=== PATIENT | female | born 1945 | race Caucasian/White ===

== ENCOUNTER 2019-07-15 19:21 | Emergency (ER) | payer MEDICARE, BC ==
--- NOTE | 2019-07-15 20:17 | EDM.PDOC ---
ED HPI GENERAL MEDICAL PROBLEM - General Chief Complaint: General Stated Complaint: MEDICAL Time Seen by Provider: 07/15/19 20:09 Source of Information: Reports: Patient History Limitations: Reports: No Limitations - History of Present Illness INITIAL COMMENTS - FREE TEXT/NARRATIVE: pt was very sleepy at first and did not answer questions. She then seemed more awake. She did vomit a large emesis at home. She is having some pain in her abdoman. She has a headache on the left side of her head. She had a t least 2-3 shots of kendra with her hot tottie. Onset: Today, Other (pt was very sleepy and confused when her dayughter found her. ) Duration: Hour(s): Location: Reports: Head, Chest, Abdomen, Generalized Associated Symptoms: Reports: Cough, Loss of Appetite, Nausea/Vomiting, Weakness denies pain Pain Score (Numeric/FACES): 0 - Related Data Allergies Allergy/AdvReac Type Severity Reaction Status Date / Time nitrofurantoin Allergy Rash Verified 07/15/19 19:58 [From Macrobid] Sulfa (Sulfonamide Allergy Rash Verified 07/15/19 19:58 Antibiotics) Home Meds: Home Meds Aspirin 81 mg PO DAILY 07/15/19 [History] Omeprazole 40 mg PO DAILY 07/15/19 [History] Raloxifene HCl [Evista] 60 mg PO DAILY 07/15/19 [History] carBAMazepine [TEGretol ER] 200 mg PO DAILY 07/15/19 [History] Past Medical History HEENT History: Reports: Impaired Vision, Other (See Below) Other HEENT History: dentures Cardiovascular History: Reports: High Cholesterol Gastrointestinal History: Reports: Other (See Below) Other Gastrointestinal History: acid reflux CADDY History: Reports: Musculoskeletal History: Reports: Arthritis Neurological History: Reports: Headaches, Chronic Psychiatric History: Reports: Depression - Infectious Disease History Infectious Disease History: Reports: Chicken Pox, Measles, Mumps - Past Surgical History GI Surgical History: Reports: Colonoscopy Female Surgical History: Reports: Tubal Ligation Social & Family History - Tobacco Use Smoking Status *Q: Never Smoker - Caffeine Use Caffeine Use: Reports: Coffee - Recreational Drug Use Recreational Drug Use: No ED ROS GENERAL - Review of Systems Review Of Systems: See Below Constitutional: Reports: Malaise, Weakness, Other (pt did have a ho tottie prior to coming to the ER and being found so sleepy. ) HEENT: Reports: No Symptoms Respiratory: Reports: No Symptoms Cardiovascular: Reports: No Symptoms Endocrine: Reports: No Symptoms GI/Abdominal: Reports: No Symptoms : Reports: No Symptoms Musculoskeletal: Reports: No Symptoms Skin: Reports: No Symptoms Neurological: Reports: Confusion, Dizziness, Trouble Speaking, Weakness, Other ( pt was very sleepy. ) ED EXAM, GENERAL - Physical Exam Exam: See Below Free Text/Narrative:: pt arrived very sleepy and not responding as she normally did. She states that she did have a hot tottie prior to the onset of these symptoms. Exam Limited By: No Limitations General Appearance: Alert, Mild Distress, Other (pupils equal and reactive to lite. ) Ears: Normal TMs Nose: Normal Inspection Throat/Mouth: Normal Inspection Head: Atraumatic Neck: Normal Inspection Respiratory/Chest: No Respiratory Distress Cardiovascular: Regular Rate, Rhythm GI/Abdominal: Soft, Other (mild lower abdomanal tenderness. ) (Female) Exam: Deferred Rectal (Female) Exam: Other (no masses were noted the stool was not bloody and was soft. ) Back Exam: Normal Inspection Extremities: Normal Inspection Neurological: Alert, Oriented, Normal Cognition Psychiatric: Normal Affect Skin Exam: Dry Course - Vital Signs Last Recorded V/S: Last Vital Signs Temp 36.3 C 07/15/19 19:57 Pulse 79 07/15/19 21:53 Resp 16 07/15/19 21:53 BP 118/73 07/15/19 21:53 Pulse Ox 94 L 07/15/19 21:53 - Orders/Labs/Meds Labs: Laboratory Tests 07/15/19 07/15/19 07/15/19 Range/Units 20:04 20:12 20:12 WBC 8.3 (4.5-11.0) K/uL RBC 4.61 (3.30-5.50) M/uL Hgb 13.3 (12.0-15.0) g/dL Hct 40.1 (36.0-48.0) % MCV 87 (80-98) fL MCH 29 (27-31) pg MCHC 33 (32-36) % Plt Count 225 (150-400) K/uL Neut % (Auto) 86 H (36-66) % Lymph % (Auto) 11 L (24-44) % [place] % (Auto) 2 (2-6) % Eos % (Auto) 1 L (2-4) % Baso % (Auto) 0 (0-1) % Sodium 143 (140-148) mmol/L Potassium 3.1 L (3.6-5.2) mmol/L Chloride 107 (100-108) mmol/L Carbon Dioxide 25 (21-32) mmol/L Anion Gap 14.1 H (5.0-14.0) mmol/L BUN 9 (7-18) mg/dL Creatinine 0.6 (0.6-1.0) mg/dL Est Cr Clr Drug Dosing 61.13 mL/min Estimated GFR (MDRD) > 60 (>60) Glucose 109 H (74-106) mg/dL Calcium 8.3 L (8.5-10.1) mg/dL Total Bilirubin 0.1 L (0.2-1.0) mg/dL AST 22 (15-37) U/L ALT 27 (12-78) U/L Alkaline Phosphatase 53 (46-116) U/L C-Reactive Protein (0.0-0.3) mg/dL Total Protein 6.7 (6.4-8.2) g/dL Albumin 3.4 (3.4-5.0) g/dL Globulin 3.3 (2.3-3.5) g/dL Albumin/Globulin Ratio 1.0 L (1.2-2.2) Urine Color (YELLOW) Urine Appearance (CLEAR) Urine pH (5.0-8.0) Ur Specific Sulphur (1.008-1.030) Urine Protein (NEGATIVE) mg/dL Urine Glucose (UA) (NEGATIVE) mg/dL Urine Ketones (NEGATIVE) mg/dL Urine Occult Blood (NEGATIVE) Urine Nitrite (NEGATIVE) Urine Bilirubin (NEGATIVE) Urine Urobilinogen (0.2-1.0) EU/dL Ur Leukocyte Esterase (NEGATIVE) Urine RBC (0-5) Urine WBC (0-5) Ur Epithelial Cells Amorphous Sediment Urine Bacteria Urine Mucus Ethyl Alcohol 116 mg/dL 07/15/19 07/15/19 Range/Units 20:21 20:32 WBC (4.5-11.0) K/uL RBC (3.30-5.50) M/uL Hgb (12.0-15.0) g/dL Hct (36.0-48.0) % MCV (80-98) fL MCH (27-31) pg MCHC (32-36) % Plt Count (150-400) K/uL Neut % (Auto) (36-66) % Lymph % (Auto) (24-44) % [place] % (Auto) (2-6) % Eos % (Auto) (2-4) % Baso % (Auto) (0-1) % Sodium (140-148) mmol/L Potassium (3.6-5.2) mmol/L Chloride (100-108) mmol/L Carbon Dioxide (21-32) mmol/L Anion Gap (5.0-14.0) mmol/L BUN (7-18) mg/dL Creatinine (0.6-1.0) mg/dL Est Cr Clr Drug Dosing mL/min Estimated GFR (MDRD) (>60) Glucose (74-106) mg/dL Calcium (8.5-10.1) mg/dL Total Bilirubin (0.2-1.0) mg/dL AST (15-37) U/L ALT (12-78) U/L Alkaline Phosphatase (46-116) U/L C-Reactive Protein 0.33 H (0.0-0.3) mg/dL Total Protein (6.4-8.2) g/dL Albumin (3.4-5.0) g/dL Globulin (2.3-3.5) g/dL Albumin/Globulin Ratio (1.2-2.2) Urine Color Yellow (YELLOW) Urine Appearance Clear (CLEAR) Urine pH 5.5 (5.0-8.0) Ur Specific [place] 1.015 (1.008-1.030) Urine Protein Negative (NEGATIVE) mg/dL Urine Glucose (UA) Negative (NEGATIVE) mg/dL Urine Ketones Negative (NEGATIVE) mg/dL Urine Occult Blood Negative (NEGATIVE) Urine Nitrite Negative (NEGATIVE) Urine Bilirubin Negative (NEGATIVE) Urine Urobilinogen 0.2 (0.2-1.0) EU/dL Ur Leukocyte Esterase Negative (NEGATIVE) Urine RBC 0-5 (0-5) Urine WBC 0-5 (0-5) Ur Epithelial Cells Few Amorphous Sediment Rare Urine Bacteria Not seen Urine Mucus Not seen Ethyl Alcohol mg/dL Meds: Medications Discontinued Medications Generic Name Dose Route Start Last Admin Trade Name Freq PRN Reason Stop Dose Admin Acetaminophen 650 mg 07/15/19 22:25 07/15/19 22:30 Tylenol PO 07/15/19 22:26 650 mg NOW ONE Administration Sodium Chloride 1,000 mls @ 999 mls/hr 07/15/19 20:30 07/15/19 22:22 Normal Saline IV 999 mls/hr ASDIRECTED TONEY Administration Ondansetron HCl 4 mg 07/15/19 20:21 07/15/19 22:10 Zofran IVPUSH 07/15/19 20:22 4 mg ONETIME ONE Administration - Re-Assessments/Exams Free Text/Narrative Re-Assessment/Exam: 07/15/19 21:57 cat scan of the head was normal. her lab was good but she had a lower k. She did have a etoh level that was .116 I believe she was intoxicated and this is the reason tht she was sleepy and she was confused feeling. She had a cat scan of the head which did not show any acute problems. She did have a headache. Her chest xray did not reveal a pneumonia. 07/16/19 19:05 Departure - Departure Time of Disposition: 23:55 Disposition: Home, Self-Care 01 Condition: Fair Clinical Impression: Intoxication, Upper respiratory infection, Dehydration - Discharge Information Instructions: Alcohol Intoxication, [id number], Dehydration, Adult, Easy-to- Read, Upper Respiratory Infection, Adult, [id number] Referrals: PCP,None [Primary Care Provider] - Forms: ED Department Discharge Care Plan Goals: cool mist humidifier, cont robitussin with cod, mom 2 tbsb for constipation, zoforan 4mg q6h prn for nausea
[2019-07-15] MEDS ORDERED: Ondansetron 4 MG/2 ML SDV IVPUSH ONE (20:21)
[2019-07-15] MEDS ORDERED: Sodium Chloride 0.9% 1,000 ML IV SCH (20:30)
--- NOTE | 2019-07-15 20:54 | CRLCR ---
INDICATION: cough. TECHNIQUE: Chest 1 view. COMPARISON: None. FINDINGS: Cardiovascular and mediastinum: Heart size and vasculature are normal in caliber and appearance. Mediastinum is within normal limits. Lungs and pleural space: Lungs are clear. No sign of infiltrate or mass. No sign of pleural effusion. No pneumothorax. Bones and soft tissues: No significant findings. IMPRESSION: Unremarkable chest. Dictated by: Fernando Rosas MD @ 07/15/2019 20:52:16 (Electronically Signed)
--- NOTE | 2019-07-15 21:46 | CRLCT ---
HISTORY: Confusion. Headache. TECHNIQUE: CT brain without contrast. COMPARISON: None. FINDINGS: No acute intracranial hemorrhage. No extra-axial collection. No mass effect or midline shift. Mild brain volume loss with proportional enlargement of the CSF spaces. Cisterns are patent. Mild hypoattenuation in the deep white matter is likely chronic small vessel ischemic change. Calvarium is intact. Mild mucosal thickening in the ethmoid air cells and sphenoid sinuses. Mastoid air cells are clear. IMPRESSION: No acute intracranial abnormality. Please note that all CT scans at this facility use dose modulation, iterative reconstruction, and/or weight-based dosing when appropriate to reduce radiation dose to as low as reasonably achievable. Dictated by George Padilla MD @ Jul 15 2019 9:43PM Signed by Dr. George Padilla @ Jul 15 2019 9:44PM
[2019-07-15] MEDS ORDERED: Acetaminophen 325 MG Tab PO ONE (22:25)
== END 2019-07-16 00:28 | disposition home or self-care (01) ==
LOC: JP.ED 19:21
DX: F10.129 Alcohol abuse with intoxication, unspecified (principal); J06.9 Acute upper respiratory infection, unspecified; E86.0 Dehydration; K21.9 Gastro-esophageal reflux disease without esophagitis; Z88.1 Allergy status to other antibiotic agents; Z88.2 Allergy status to sulfonamides; Z98.51 Tubal ligation status; Z79.82 Long term (current) use of aspirin; Z79.899 Other long term (current) drug therapy; Y90.0 Blood alcohol level of less than 20 mg/100 ml
CPT/HCPCS: 36415; 70450; 71045; 80053; 81001; 85025; 86140; 96361; 96374; 99284; A9270; G0480; J2405; J7030

== ENCOUNTER 2022-02-13 17:35 | Emergency (ER) | payer MEDICARE, BC ==
[2022-02-13] MEDS ORDERED: Ketorolac 30 MG/ML SDV IM ONE (18:10)
== END 2022-02-13 19:11 | disposition home or self-care (01) ==
LOC: JP.ED 17:35
DX: S43.491A Other sprain of right shoulder joint, initial encounter (principal); E78.00 Pure hypercholesterolemia, unspecified; Z88.1 Allergy status to other antibiotic agents; Z88.2 Allergy status to sulfonamides; Z79.82 Long term (current) use of aspirin; Z79.899 Other long term (current) drug therapy; Z87.891 Personal history of nicotine dependence; X50.1XXA Overexertion from prolonged static or awkward postures, initial encounter
CPT/HCPCS: 73030-RT; 96372; 99283; J1885

== ENCOUNTER 2022-02-18 10:42 | Emergency (ER) | payer MEDICARE, BC ==
[2022-02-18] MEDS ORDERED: Bupivacaine 0.5% 10 ML SDV INJECT ONE (11:23)
[2022-02-18] MEDS ORDERED: HYDROmorphone 1 MG/ML Syringe IM ONE (11:51)
== END 2022-02-18 14:00 | disposition home or self-care (01) ==
LOC: JP.ED 10:42
DX: G62.9 Polyneuropathy, unspecified (principal); E78.00 Pure hypercholesterolemia, unspecified; K21.9 Gastro-esophageal reflux disease without esophagitis; Z88.2 Allergy status to sulfonamides; Z88.1 Allergy status to other antibiotic agents; Z79.82 Long term (current) use of aspirin; Z79.899 Other long term (current) drug therapy
CPT/HCPCS: 72141; 96372; 99282; 99283; J1170; J3490

== ENCOUNTER 2022-03-11 13:57 | Emergency (ER) | payer MEDICARE, BC ==
[2022-03-11] MEDS ORDERED: LORazepam 2 MG/ML SDV IM ONE (15:27)
[2022-03-11] MEDS ORDERED: Gabapentin 300 MG Cap PO ONE (15:29)
[2022-03-11] MEDS ORDERED: HYDROmorphone 0.5 MG/0.5 ML Syringe IVPUSH ONE (16:40)
== END 2022-03-11 17:54 | disposition home or self-care (01) ==
LOC: JP.ED 13:57
DX: B02.9 Zoster without complications (principal); E78.00 Pure hypercholesterolemia, unspecified; K21.9 Gastro-esophageal reflux disease without esophagitis; Z88.1 Allergy status to other antibiotic agents; Z88.2 Allergy status to sulfonamides; Z79.82 Long term (current) use of aspirin; Z79.899 Other long term (current) drug therapy
CPT/HCPCS: 96372; 96374; 99283-25; 99284; A9270-GY; J1170; J2060

== ENCOUNTER 2022-05-27 19:36 | Emergency (ER) | payer MEDICARE, BC ==
[2022-05-27] MEDS ORDERED: cefTRIAXone 1 GM, Lidocaine 1% 2.1 ML IM ONE ×2 (20:35)
== END 2022-05-27 21:03 | disposition home or self-care (01) ==
LOC: JP.ED 19:36
DX: N30.01 Acute cystitis with hematuria (principal); Z88.8 Allergy status to other drugs, medicaments and biological substances; Z88.2 Allergy status to sulfonamides; Z88.7 Allergy status to serum and vaccine; Z79.899 Other long term (current) drug therapy; Z79.82 Long term (current) use of aspirin; Z87.891 Personal history of nicotine dependence
CPT/HCPCS: 81001; 87086; 87088; 87186; 96372; 99283; J0696

== ENCOUNTER 2022-05-30 10:53 | Emergency (ER) | payer MEDICARE, BC ==
[2022-05-30] MEDS ORDERED: Phenazopyridine 95 MG Tab PO ONE (12:32)
[2022-05-30] MEDS ORDERED: Sodium Chloride 0.9% 1,000 ML IV SCH ×2 (12:45→14:00)
[2022-05-30 13:10] LABS: ESTIMATED GFR 65 mL/min (>60)
[2022-05-30] MEDS ORDERED: cefTRIAXone 2 GM in Sodium Chloride 0.9% 50 ML IV ONE (13:19)
== END 2022-05-30 15:33 | disposition home or self-care (01) ==
LOC: JP.ED 10:53
DX: N39.0 Urinary tract infection, site not specified (principal); E86.0 Dehydration; Z88.2 Allergy status to sulfonamides; Z88.7 Allergy status to serum and vaccine; Z88.8 Allergy status to other drugs, medicaments and biological substances; Z79.82 Long term (current) use of aspirin; Z79.899 Other long term (current) drug therapy
CPT/HCPCS: 36415; 80053; 81001; 85025; 87086; 96361; 96365; 99283; A9270; J0696; J7030

== ENCOUNTER 2022-05-31 14:13 | Emergency (ER) | payer MEDICARE, BC ==
[2022-05-31] MEDS ORDERED: Oxybutynin 5 MG Tab PO SCH (16:30)
== END 2022-05-31 17:11 | disposition home or self-care (01) ==
LOC: JP.ED 14:13
DX: N30.90 Cystitis, unspecified without hematuria (principal); N32.89 Other specified disorders of bladder; Z88.8 Allergy status to other drugs, medicaments and biological substances; Z88.2 Allergy status to sulfonamides; Z88.7 Allergy status to serum and vaccine; Z79.899 Other long term (current) drug therapy; Z79.82 Long term (current) use of aspirin
CPT/HCPCS: 74176; 99284; A9270; J0696

== ENCOUNTER 2022-06-16 07:51 | Emergency (ER) | payer MEDICARE, BC | END 2022-06-16 09:34 | disposition home or self-care (01) | LOC: JP.ED 07:51 | DX: N30.00 Acute cystitis without hematuria (principal); M19.90 Unspecified osteoarthritis, unspecified site; E78.00 Pure hypercholesterolemia, unspecified; Z79.82 Long term (current) use of aspirin; Z79.899 Other long term (current) drug therapy; Z87.891 Personal history of nicotine dependence; Z88.2 Allergy status to sulfonamides; Z88.8 Allergy status to other drugs, medicaments and biological substances | CPT/HCPCS: 81001; 87086; 87088; 87186; 99283 ==

== ENCOUNTER 2022-06-20 09:43 | Emergency (ER) | payer MEDICARE, BC ==
[2022-06-20] MEDS ORDERED: Lidocaine 2% Jelly 10 ML Urojet MUCMEM ONE (11:26)
[2022-06-20] MEDS ORDERED: Phenazopyridine 95 MG Tab PO ONE (11:26)
[2022-06-20] MEDS ORDERED: hydrOXYzine HCL 100 MG/2 ML SDV IM ONE (11:56)
== END 2022-06-20 13:37 | disposition home or self-care (01) ==
LOC: JP.ED 09:43
DX: N30.90 Cystitis, unspecified without hematuria (principal); N81.4 Uterovaginal prolapse, unspecified; N76.0 Acute vaginitis; B96.89 Other specified bacterial agents as the cause of diseases classified elsewhere; Z88.8 Allergy status to other drugs, medicaments and biological substances; Z88.2 Allergy status to sulfonamides; Z88.7 Allergy status to serum and vaccine; Z79.82 Long term (current) use of aspirin; Z79.899 Other long term (current) drug therapy
CPT/HCPCS: 81001; 87210; 96372; 99283; A9270; J3410

== ENCOUNTER 2022-07-22 19:43 | Emergency (ER) | payer MEDICARE, BC ==
[2022-07-22] MEDS ORDERED: Sodium Chloride 0.9% 1,000 ML IV SCH ×2 (20:15→22:30)
[2022-07-22 20:49] LABS: ESTIMATED GFR 88 mL/min (>60)
[2022-07-22] MEDS ORDERED: cefTRIAXone 2 GM in Sodium Chloride 0.9% 50 ML IV ONE (22:44)
[2022-07-22] MEDS ORDERED: Sodium Chloride 0.9% 50 ML ONE (22:53)
[2022-07-22] MEDS ORDERED: cefTRIAXone 2 GM AdvVial IV ONE (22:53)
== END 2022-07-23 00:10 | disposition home or self-care (01) ==
LOC: JP.ED 19:43
DX: N39.0 Urinary tract infection, site not specified (principal); M19.90 Unspecified osteoarthritis, unspecified site; Z87.891 Personal history of nicotine dependence; Z88.1 Allergy status to other antibiotic agents; Z88.2 Allergy status to sulfonamides; Z88.7 Allergy status to serum and vaccine; Z79.82 Long term (current) use of aspirin; Z79.899 Other long term (current) drug therapy
CPT/HCPCS: 36415; 51702; 51798; 80053; 81001; 85025; 96361; 96365; 99283; J0696; J7030

== ENCOUNTER 2022-07-25 22:10 | Emergency (ER) | payer MEDICARE, BC ==
[2022-07-25] MEDS ORDERED: Ondansetron 4 MG Tab.DIS PO STA (23:15)
[2022-07-26] MEDS ORDERED: Acetaminophen 325 MG Tab PO ONE (00:14)
== END 2022-07-26 00:55 | disposition home or self-care (01) ==
LOC: JP.ED 22:10
DX: U07.1 COVID-19 (principal); Z88.8 Allergy status to other drugs, medicaments and biological substances; Z88.7 Allergy status to serum and vaccine; Z88.2 Allergy status to sulfonamides; Z79.82 Long term (current) use of aspirin; Z79.899 Other long term (current) drug therapy
CPT/HCPCS: 99283; A9270; Q0162

== ENCOUNTER 2024-12-02 10:19 | Emergency (ER) | payer MEDICARE, BC ==
[2024-12-02 11:15] LABS: APPEARANCE,URINE CLEAR (CLEAR); BILIRUBIN,URINE NEGATIVE (NEGATIVE); COLOR,URINE YELLOW (YELLOW); GLUCOSE,URINE NEGATIVE (NEGATIVE); KETONES,URINE NEGATIVE (NEGATIVE); LEUKOCYTE ESTERASE,URINE SMALL (NEGATIVE); NITRITE,URINE NEGATIVE (NEGATIVE); OCCULT BLOOD,URINE NEGATIVE (NEGATIVE); PH,URINE 6.5 (5.0-8.0); PROTEIN,URINE NEGATIVE (NEGATIVE); UROBILINOGEN,URINE 0.2 EU/dL (0.2-1.0)
[2024-12-02 11:33] LABS: BACTERIA,URINE FEW; EPITHELIAL CELLS,URINE NOT SEEN; RBC,URINE NOT SEEN (0-5)
[2024-12-02] MEDS ORDERED: Naloxone 0.4 MG/ML SDV IVPUSH PRN (11:37)
[2024-12-02 11:52] LABS: BASOPHILS ABSOLUTE AUTO 0.03 K/uL (0.00-0.10); BASOPHILS PERCENT AUTO 0.4 % (0.1-1.3); EOSINOPHILS ABSOLUTE AUTO 0.17 K/uL (0.00-0.40); EOSINOPHILS PERCENT AUTO 2.2 % (0.0-5.4); HEMATOCRIT 39.9 % (34.3-46.0); HEMOGLOBIN 13.3 g/dL (11.2-15.5); IMMATURE GRAN PERCENT AUTO 0.1 % (0.0-0.7); LYMPHOCYTES ABSOLUTE AUTO 2.01 K/uL (0.8-3.3); LYMPHOCYTES PERCENT AUTO 25.7 % (11.4-47.7); MEAN CORPUSCULAR HEMOGLOBIN 30.5 pg (31.6-35.5); MEAN CORPUSCULAR HGB CONC 33.3 g/dL (31.6-35.5); MEAN CORPUSCULAR VOLUME 91.5 fL (81.4-99.0); MONOCYTES ABSOLUTE AUTO 0.64 K/uL (0.20-0.90); MONOCYTES PERCENT AUTO 8.2 % (3.3-12.6); NEUTROPHILS ABSOLUTE AUTO 4.95 K/uL (1.0-7.6); NEUTROPHILS PERCENT AUTO 63.4 % (40.0-78.1); PLATELET COUNT,PLT 205 K/uL (130-375); RED BLOOD CELL COUNT 4.36 M/uL (3.77-5.24); WHITE BLOOD CELL COUNT,WBC 7.8 K/uL (3.2-11.0)
[2024-12-02] MEDS: Ondansetron 4 MG/2 ML SDV IVPUSH ONE (11:53)
[2024-12-02] MEDS: Sodium Chloride 0.9% 1,000 ML IV ONE (11:53)
[2024-12-02] MEDS: HYDROmorphone 0.5 MG/0.5 ML Syringe IVPUSH PRN (11:53)
[2024-12-02 11:54] LABS: IMMATURE GRAN ABSOLUTE AUTO 0.01 K/uL (0.00-0.23)
[2024-12-02 12:20] LABS: A/G RATIO 1.1 (1.2-2.2); ALANINE AMINOTRANSFERASE,ALT 29 U/L (12-78); ALBUMIN 3.6 g/dL (3.4-5.0); ALKALINE PHOSPHATASE 84 U/L (46-116); ASPARTATE AMNIOTRANSFERASE,AST 37 U/L (15-37); BILIRUBIN TOTAL 0.3 mg/dL (0.2-1.0); BLOOD UREA NITROGEN,BUN 14 mg/dL (7-18); CALCIUM 8.7 mg/dL (8.5-10.1); CARBON DIOXIDE,CO2 29 mmol/L (21-32); CHLORIDE,CL 101 mmol/L (100-108); CREATININE 0.8 mg/dL (0.6-1.0); EST CRCL DRUG DOSING (CG) 41.62 mL/min; ESTIMATED GFR 74 mL/min (>60); GLUCOSE RANDOM 87 mg/dL (74-106); POTASSIUM,K 4.4 mmol/L (3.6-5.2); PROTEIN TOTAL,TP 6.9 g/dL (6.4-8.2); SODIUM,NA 135 mmol/L (140-148)
[2024-12-02 12:34] LABS: ANION GAP 9.4 mmol/L (5.0-14.0)
[2024-12-02] MEDS: Ondansetron 4 MG Tab.DIS PO ONE (16:22)
== END 2024-12-02 16:25 | disposition home or self-care (01) ==
LOC: JP.ED 10:19
DX: M51.34 Other intervertebral disc degeneration, thoracic region (principal); I70.0 Atherosclerosis of aorta; Z88.2 Allergy status to sulfonamides; Z88.8 Allergy status to other drugs, medicaments and biological substances; Z79.82 Long term (current) use of aspirin; Z79.899 Other long term (current) drug therapy; Z86.16 Personal history of COVID-19
CPT/HCPCS: 36415; 74176; 80053; 81001; 85025; 96374; 96375; 96376; 99284; J2405; Q0162